=== PATIENT | male | born 2005 | race Caucasian/White ===

== ENCOUNTER 2025-02-02 13:27 | Outpatient (AMB) | payer BC, SELFPAY ==
--- NOTE | 2025-02-02 13:40 | A.OFFPC_ITS ---
Vital Signs 02/02/25 13:41 Height 5 ft 11.65 in Weight 205 lb BMI 28.1 BP 100/66 Blood Pressure Location Lt brachial Position Sitting Pulse 85 Pulse Source Pulse Oximeter Temp 97.3 F Temp Source Temporal Artery Scan Pulse Oximetry (%) 98 Oxygen Delivery Method Room Air Intake Visit Reasons: Establish Care Intake Note: Patient is a new patient here to establish care for Wellness visit. Transferring care from . Medical records have been requested and have not received. Towel Stretcher Required: No Car Body Inspector: Not Required per policy Accompanied by: Self / Same As Patient Allergies No Known Allergies Allergy (Verified 02/02/25 13:50) Medication List - Last Reconciled 02/02/25 by Alisson Garcia PA-C No Known Home Meds Tobacco use date assessed: 02/02/25 Dental Screening Dental Screen Date: 02/02/25 Did you have a dental visit in the last 12 months?: Yes Did you have a dental problem in the last 6 months where you did not have access to dental care?: No Was dental information given to patient?: Patient has dentist HPI Establish Care HPI Details 19 year old male coming to the office fo r the first time. Presenting for a wellness visit and routine health maintenance. The patient has a history of seasonal allergies which have resolved over time without recurrence. The patient works as a production line worker and engages in regular exercise, specifically street biking. The patient maintains a healthy diet rich in fruits and vegetables and reports adequate sleep. Sees eye doctor yearly for corrective lenses vaccines: believes he is [facility] Surgical History History of tonsillectomy History of appendicostomy Social History Housing: House Alcohol intake: current Alcohol intake frequency: a few times a month Patient Tobacco Use Status: Never used Tobacco e-Cigarette/Vaping Use: Never Used Second Hand Smoke Exposure: No service: No Current occupational status: employed Current occupation: fast food fry cook Cognitive needs: No Hearing needs: No Vision needs: Yes (Glasses) Questionnaire PHQ-9 Over the last 2 weeks, how often have you been bothered by any of the following problems? 1. Little interest or pleasure in doing things: not at all 2. Feeling down, depressed, or hopeless: not at all 3. Trouble falling or staying asleep, or sleeping too much: not at all 4. Feeling tired or having little energy: not at all 5. Poor appetite or overeating: not at all 6. Feeling bad about yourself - or that you are a failure or have let yourself or your family down: not at all 7. Trouble concentrating on things, such as reading the newspaper or watching television: not at all 8. Moving or speaking so slowly that other people could have noticed. Or the opposite - being so fidgety or restless that you have been moving around a lot more than usual: not at all 9. Thoughts that you would be better off or of hurting yourself in some way: not at all Total score: 0 Depression Screening Interpretation: Negative Depression Screening Done: Yes 91847 - PHQ-9 Billing: Yes Source: Developed by Drs. Omid Girard, Ewa William, Leonid Sanches and colleagues, with an educational katie from [employer]. Thrive Questionnaire Date Thrive assessed: 01/31/25 I am a: Patient What is your living situation today?: I have a steady place to live Within the past 12 months, did the food you bought not last and you didn't have the money to get more?: I choose not to answer this question Within the past 12 months, did you worry whether your food would run out before you got money to buy more?: I choose not to answer this question Do you have trouble paying for medicines?: No Do you have trouble getting transportation to medical appointments?: No Do you have trouble paying your heating and electricity bill?: No Do you have trouble taking care of your child, family member or friend?: I choose not to answer this question Do you have trouble with day-to-day activities such as bathing, preparing meals, shopping, managing finances, etc.?: I choose not to answer this question Are you currently unemployed and looking for a job?: No Are you interested in more education?: Yes Please select the resources that you would like help with: None Currently or been in a relationship where the following occur: No concerns reported THRIVE Score: 0 AUDIT C Alcohol Use Questionnaire (AUDIT-C) 1. How often do you have a drink containing alcohol?: 2-4 times a month 2. How many drinks containing alcohol do you have on a typical day when you are drinking?: 1 or 2 3. How often do you have six or more drinks on one occasion?: Never Total Score: 2 Score Reviewed/Action Taken: Yes HERMILA-7 AMB Questionnaire HERMILA-7 Date HERMILA - 7 assessed: 02/02/25 Feeling nervous, anxious, or on edge: 0 = Not at all Not being able to stop or control worryin = Not at all Worrying too much about different things: 0 = Not at all Trouble relaxin = Not at all Being so restless that it is hard to sit still: 0 = Not at all Becoming easily annoyed or irritable: 0 = Not at all Feeling afraid as if something awful might happen: 0 = Not at all Total HERMILA-7 score (0-4 normal; 5-9 mild; 10-14 moderate; 15-21 severe): 0 Source: Developed by Drs. Omid Girard, Ewa William, Leonid Sanches and colleagues, with an educational katie from [employer]. HERMILA-7 Assessment Billing HERMILA-7 Assessment Tool: HERMILA-7 Assessment 32924 Review of Systems Const Denies body aches, Denies fatigue, Denies fever(s), Denies frequent falls, Denies headache(s) and Denies weakness Eyes Reports no additional complaints, Denies change in vision and Reports requires corrective lenses ENT Denies dysphagia, Denies dizziness, Denies facial pain, Denies headache(s), Denies nasal congestion and Denies odynophagia Card Denies chest pain, Denies syncope, Denies irregular heart rhythm, Denies leg edema, Denies lightheadedness and Denies dyspnea Resp Denies cough and Denies dyspnea GI Denies abdominal pain, Denies constipation, Denies dysphagia, Denies dyspepsia, Denies diarrhea, Denies nausea, Denies odynophagia and Denies vomiting Denies dysuria, Denies urinary hesitancy and Denies urinary urgency Musc Denies back pain and Denies myalgias Skin/Breast Reports system reviewed and no additional complaints, except as documented Neuro Denies dizziness, Denies syncope, Denies frequent falls, Denies headache(s) and Denies weakness Psych Reports no additional complaints Endo Denies fatigue Physical exam (Primary Care) Vital Signs: Last Vital Signs Temp 97.3 F 02/02/25 13:41 Pulse 85 02/02/25 13:41 BP 100/66 02/02/25 13:41 Pulse Ox 98 02/02/25 13:41 Oxygen Delivery Method Room Air 02/02/25 13:41 BMI result Body Mass Index 28.1 Tobacco/Smoking Status: Tobacco use Status Tobacco use date assessed 02/02/25 02/02/25 13:49 Patient Tobacco Use Status Never used Tobacco 02/02/25 13:49 e-Cigarette/Vaping Use Never Used 02/02/25 13:49 PHQ-9: PHQ-9 Score PHQ-9: Total score 0 02/02/25 13:52 Depression Screening Interpretation: Negative Thrive Assessment: Date of Thrive Assessment Date Thrive assessed 01/31/25 02/02/25 13:49 Currently or been in a relationship where the following occur: No concerns reported Const General: cooperative, healthy appearing, comfortable and no acute distress Orientation/consciousness: patient oriented x3 HENMT Head: Yes normocephalic Ears: hearing grossly normal bilaterally, external ears normal, TM's normal bilaterally and EAC's normal General nose exam: Normal external nose present Face and sinus: Yes normal facial exam and Yes sinuses nontender Mouth: Normal oral and palatal mucosa present and tongue normal Throat: Yes posterior oropharynx normal Eyes General: appearance normal, both eyes and all related structures Conjunctivae: conjunctivae normal Pupils: Equal, round and reactive pupils present EOM: EOMs intact bilaterally and No Nystagmus present Neck Neck: Yes normal visual inspection, Yes full ROM and Yes no lymphadenopathy Chest Chest palpation & inspection: normal inspection of the chest Resp Effort & Inspection: normal respiratory effort Auscultation: clear to auscultation bilaterally, no crackles, no rales, no rhonchi, no wheezes and breath sounds present Cardio Rate: regular rate Rhythm: regular rhythm Peripheral pulses: radial pulses present and dorsalis pedis present GI Inspection: Yes normal to inspection and No Abdominal wall edema Palpation (GI): Soft to palpation, not firm and nontender Auscultation: normal bowel sounds Rectal Exam - Male: Yes deferred General: Yes no CVA tenderness Back/Spine/Pelvis Back: no CVA tenderness Skin General skin exam: no rashes or lesions noted Neuro General: patient oriented x3 Cranial nerves: Yes Equal, round and reactive pupils present, Yes Midline tongue present, Yes Ability to bilaterally elevate shoulders present and No Nystagmus present Gait exam (Neuro): Normal gait present Extrem General: Yes normal to inspection, Yes full ROM, No no pedal edema and No edema Psych Speech and movement: Normal speech and movement present Affect: normal affect Insight: Good insight present (Psych) Judgement: Good judgement present (Psych) Coding Level of Care Code New Pt Prev Care 18-39yr([id number] Diagnoses Annual physical exam Z00.00 Overweight (BMI 25.0-29.9) E66.3 Additional Codes HERMILA-7 Assessment Billing - HERMILA-7 Assessment Tool: HERMILA-7 Assessment 39161 ([id number]) PHQ-9 - 65409 - PHQ-9 Billing: Yes ([id number]) Assessment & Plan Assessment & Plan (1) Annual physical exam: Code(s): Z00.00 - Encounter for general adult medical examination without abnormal findi ngs Category: Medical Plan: Routine blood work will be conducted to assess kidney, liver, electrolytes, thyroid, and vitamin levels. The patient is advised to maintain regular exercise and a healthy diet, which includes plenty of fruits and vegetables. Vaccination records will be reviewed to ensure the tetanus vaccine is up to date, especially considering the patient's occupation as a production line worker. If the tetanus vaccine is needed, the patient will be contacted to schedule an appointment. The patient is encouraged to continue regular physical activity, specifically street biking, and to maintain a balanced diet. Adequate sleep is also emphasized as part of overall health maintenance. Follow-up is planned for a yearly wellness visit unless any concerns arise in the interim. If any abnormalities are found in the blood work, the patient will be contacted for further discussion and management. (2) Overweight (BMI 25.0-29.9): Code(s): E66.3 - Overweight Category: Medical Plan: Healthy diet and regular exercise is encouraged. Plan This note was constructed using voice recognition software. While every effort has been made to ensure accuracy and cdc associate, still areas may have been included sometimes these areas may affect the content or meeting of the given symptoms. Total time spent caring for the patient today was 20 minutes. This includes time spent before the visit reviewing the chart, time spent during the visit, and time spent after the visit and documentation. Patient was informed and verbally consented to the use of an ambient scribe for clinic note documentation during this visit. Orders: Orders TSH reflex Free T4 Today Z13.29 - Encounter for screening for other suspected endocrine disorder Vitamin B12 and Folate Today Z13.21 - Encounter for screening for nutritional disorder Vitamin D 25-OH Total Today Z13.21 - Encounter for screening for nutritional disorder Comprehensive Met. Panel Today Z13.1 - Encounter for screening for diabetes mellitus Complete Blood Count Auto Diff Today Z13.0 - Encounter for screening for diseases of the blood and blood-forming organs and certain disorders involving the immune mechanism
[2025-02-02 13:41] VITALS: BP 100/66; PULSE 85; TEMP 36.3; O2SAT 98; BMI 28.1
== END 2025-02-02 14:04 | disposition home or self-care (01) ==
LOC: HO.HMCH 13:28
DX: Z00.00 Encounter for general adult medical examination without abnormal findings (principal); E66.3 Overweight

== ENCOUNTER → 2025-02-02 13:27 | Outpatient (BNVA) | payer BC, SELFPAY | DX: Z00.00 Encounter for general adult medical examination without abnormal findings (principal); E66.3 Overweight; Z68.28 Body mass index [BMI] 28.0-28.9, adult | CPT/HCPCS: 96127 ==

== ENCOUNTER 2025-02-10 14:26 | Outpatient (REF) | payer BC, SELFPAY ==
--- OUTSIDE RECORDS SUMMARY | 2025-02-10 14:38 | XMS_ITS ---
Author Name [facility] Organization Unknown Care Team Organization Name Specialty Phone Email Start Date End Da te [facility] Termed, PROVIDER Primary Care 04/30/202201/21
[2025-02-10 14:49] LABS: MANUAL DIFF FLAG NO
[2025-02-10 14:55] LABS: Hematocrit 42.4 % (42.0-52.0); Hemoglobin 14.6 g/dl (14.0-18.0); Imm Gran Abs Auto 0.11 X10*3/uL (0.00-0.03); Imm Gran Pct Auto 1.6 % (0.0-0.4); Lymphocytes Absolute Auto 1.8 X10*3/uL (1.2-4.9); Mean Corpuscular HGB Conc 34.4 g/dl (31.0-36.0); Mean Corpuscular Hemoglobin 30.6 pg (27.0-33.0); Mean Corpuscular Volume 88.9 fL (80.0-98.0); NRBC Abs Auto 0.000 X10*3/uL (0.0-0.012); NRBC Pct Auto 0.0 /100WBC (0.0-0.2); Platelet Count 330 X10*3/uL (160-400); Red Blood Count 4.77 X10*6/uL (4.60-5.80); White Blood Count 6.8 X10*3/uL (4.8-10.8)
[2025-02-10 15:31] LABS: Alanine Aminotransferase 48 U/L (0-40); Albumin Level 5.0 g/dL (3.5-5.0); Alkaline Phosphatase 85 U/L (39-117); Anion Gap 12 (12-20); Aspartate Amino Transferase 34 U/L (5-37); Blood Urea Nitrogen 14 mg/dL (9-16); Calcium 9.4 mg/dL (8.4-10.2); Carbon Dioxide 28 mmol/L (22-29); Chloride 104 mmol/L (96-108); Estimated Glomerular Filt Rate > 60; Potassium 4.2 mmol/L (3.3-5.1); Sodium 140 mmol/L (135-145); Total Protein 7.8 g/dL (6.5-8.0)
[2025-02-10 15:59] LABS: Folate 12.0 ng/mL (> or = 4.0); Vitamin B12 561 pg/mL (200-900)
== END 2025-02-10 14:27 | disposition home or self-care (01) ==
LOC: HO.LAB 14:26
DX: Z13.1 Encounter for screening for diabetes mellitus (principal); Z13.29 Encounter for screening for other suspected endocrine disorder; Z13.21 Encounter for screening for nutritional disorder; Z13.0 Encounter for screening for diseases of the blood and blood-forming organs and certain disorders involving the immune mechanism
CPT/HCPCS: 36415; 80053; 82306; 82607; 82746; 84443; 85025

== ENCOUNTER 2025-06-14 15:46 | Outpatient (AMB) | payer BC, SELFPAY ==
--- NOTE | 2025-06-14 16:04 | MHC.PC.OV ---
Vital Signs 06/14/25 16:06 Height 5 ft 11.65 in Weight 210 lb BMI 28.8 BP 120/82 Blood Pressure Location Lt brachial Position Sitting Respiration 16 Pulse 76 Pulse Source Pulse Oximeter Temp 98.5 F Temp Source Temporal Artery Scan Pulse Oximetry (%) 97 Oxygen Delivery Method Room Air Intake Visit Reasons: bilateral ear pain Community Service Technician Required: No Accompanied by: Self / Same As Patient Allergies No Known Allergies Allergy (Verified 06/14/25 16:04) Medication List - Last Reconciled 06/14/25 by Alisson Garcia PA-C cholecalciferol (vitamin D3) 25 mcg PO DAILY clotrimazole 1% 1 appl topical TID 2 weeks ofloxacin 0.3% 5 drps otic (ears) BID Tobacco use date assessed: 02/02/25 Dental Screening Dental Screen Date: 02/02/25 HPI bilateral ear pain HPI Details 19 year old male coming to the office for acute problem. Presenting with bilateral ear pain. He reports having a cold at the beginning of last week with symptoms of coughing, congestion, and some nausea, which lasted for about five days. Following the resolution of cold symptoms on Friday, he felt well until he developed significant ear pain, which started yesterday and was accompanied by dizziness and discomfort. He visited an urgent care on Friday and was prescribed ofloxacin ear drops, which he has been using twice daily in both ears since Friday. The medication has not provided significant relief. He also notes a muffled sensation in his hearing but can still hear. [facility] Surgical History History of tonsillectomy History of appendicostomy Social History Housing: House Alcohol intake: current Alcohol intake frequency: a few times a month Patient Tobacco Use Status: Never used Tobacco e-Cigarette/Vaping Use: Never Used Second Hand Smoke Exposure: No service: No Current occupational status: employed Current occupation: grill prep cook Cognitive needs: No Hearing needs: No Vision needs: Yes (Glasses) Questionnaire Thrive Questionnaire Date Thrive assessed: 01/31/25 I am a: Patient What is your living situation today?: I have a steady place to live Within the past 12 months, did the food you bought not last and you didn't have the money to get more?: I choose not to answer this question Within the past 12 months, did you worry whether your food would run out before you got money to buy more?: I choose not to answer this question Do you have trouble paying for medicines?: No Do you have trouble getting transportation to medical appointments?: No Do you have trouble paying your heating and electricity bill?: No Do you have trouble taking care of your child, family member or friend?: I choose not to answer this question Do you have trouble with day-to-day activities such as bathing, preparing meals, shopping, managing finances, etc.?: I choose not to answer this question Are you currently unemployed and looking for a job?: No Are you interested in more education?: Yes Currently or been in a relationship where the following occur: No concerns reported THRIVE Score: 0 HERMILA-7 AMB Questionnaire HERMILA-7 Date HERMILA - 7 assessed: 02/02/25 Source: Developed by Drs. Omid Girard, Ewa William, Leonid Sanches and colleagues, with an educational katie from [employer]. Review of Systems Const Denies body aches, Denies chills, Denies fever(s), Denies headache(s) and Denies poor appetite Eyes Reports no additional complaints ENT Reports as per HPI, Denies dysphagia, Denies dizziness, Reports otalgia and Denies headache(s) Card Denies chest pain, Denies edema, Denies lightheadedness and Denies dyspnea Resp Denies cough and Denies dyspnea GI Denies dysphagia, Denies nausea and Denies vomiting Reports no additional complaints Musc Reports no additional complaints and Denies abnormal gait Skin/Breast Reports system reviewed and no additional complaints, except as documented Neuro Denies abnormal gait, Denies dizziness and Denies headache(s) Psych Reports no additional complaints Physical exam (Primary Care) Vital Signs: Last Vital Signs Temp 98.5 F 06/14/25 16:06 Pulse 76 06/14/25 16:06 Resp 16 06/14/25 16:06 BP 120/82 06/14/25 16:06 Pulse Ox 97 06/14/25 16:06 Oxygen Delivery Method Room Air 06/14/25 16:06 BMI result Body Mass Index 28.8 Tobacco/Smoking Status: Tobacco use Status Tobacco use date assessed 02/02/25 06/14/25 16:09 Patient Tobacco Use Status Never used Tobacco 06/14/25 16:09 e-Cigarette/Vaping Use Never Used 06/14/25 16:09 Thrive Assessment: Date of Thrive Assessment Date Thrive assessed 01/31/25 06/14/25 16:09 Currently or been in a relationship where the following occur: No concerns reported Const General: cooperative, healthy appearing, comfortable and no acute distress Orientation/consciousness: patient oriented x3 HENMT Head: Yes normocephalic Ears: hearing grossly normal bilaterally, TM's normal bilaterally, mastoids normal and Abnormal EAC present otic discharge purulent on the left General nose exam: Normal external nose present Eyes General: appearance normal, both eyes and all related structures Conjunctivae: conjunctivae normal Neck Neck: Yes full ROM and Yes no lymphadenopathy Resp Effort & Inspection: normal respiratory effort Auscultation: clear to auscultation bilaterally, no crackles, no rales, no rhonchi and no wheezes Cardio Rate: regular rate Skin General skin exam: no rashes or lesions noted Neuro General: patient oriented x3 Gait exam (Neuro): Normal gait present Extrem General: Yes normal to inspection, Yes full ROM and No edema Psych Affect: normal affect Attitude: cooperative Insight: Good insight present (Psych) Judgement: Good judgement present (Psych) Coding Level of Care Code Est Pt Level 3 (13685) Diagnoses Otitis externa H60.90 Assessment & Plan Assessment & Plan (1) Otitis externa: Code(s): H60.90 - Unspecified otitis externa, unspecified ear Category: Medical Plan: The patient's symptoms are attributed to a fungal infection in the left ear, not a bacterial one, explaining the lack of response to ofloxacin drops. The plan is to prescribe a new antifungal ear drop to be used three times daily in the left ear for seven days. He was instructed to stop using any drops in the right ear and to be careful to avoid cross-contamination. The new prescription will be sent to the [facility] on [address]. Follow-up is recommended in one week if symptoms of pain, discomfort, or discharge do not improve. Plan This note was constructed using voice recognition software. While every effort has been made to ensure accuracy and respiratory care faculty, still areas may have been included sometimes these areas may affect the content or meeting of the given symptoms. Total time spent caring for the patient today was 20 minutes. This includes time spent before the visit reviewing the chart, time spent during the visit, and time spent after the visit and documentation. Patient was informed and verbally consented to the use of an ambient scribe for clinic note documentation during this visit. Medications: New clotrimazole 1% instill 3-4 drops into left ear TID 1 appl topical TID 30 mL 0RF 2 weeks
[2025-06-14 16:06] VITALS: BP 120/82; PULSE 76; RESP 16; TEMP 36.9; O2SAT 97; BMI 28.8
== END 2025-06-14 16:37 | disposition home or self-care (01) ==
LOC: HO.HMCH 15:46
DX: H60.90 Unspecified otitis externa, unspecified ear (principal)